=== PATIENT | female | born 1970 | race Two or more races ===

== ENCOUNTER → 2018-02-24 | Outpatient (CLI) | payer OTHER | END | disposition home or self-care (01) | LOC: MAMO-SONO 11:56 | DX: Z12.31 Encounter for screening mammogram for malignant neoplasm of breast (principal); Z87.898 Personal history of other specified conditions; N60.11 Diffuse cystic mastopathy of right breast; N60.12 Diffuse cystic mastopathy of left breast ==

== ENCOUNTER 2020-12-04 08:00 | Outpatient (CLI) | payer OTHER | END 2020-12-04 08:30 | disposition home or self-care (01) | LOC: PPH VACUNA 08:00 | DX: Z23 Encounter for immunization (principal) ==

== ENCOUNTER 2020-12-04 13:28 | Outpatient (CLI) | payer OTHER | END 2020-12-04 13:35 | disposition home or self-care (01) | LOC: MAMO-SONO 13:28 | PROVIDERS: ATTEND General Practice | DX: N60.11 Diffuse cystic mastopathy of right breast (principal); N60.12 Diffuse cystic mastopathy of left breast; Z12.31 Encounter for screening mammogram for malignant neoplasm of breast; M25.561 Pain in right knee; M25.562 Pain in left knee ==

== ENCOUNTER 2020-12-25 08:00 | Outpatient (CLI) | payer OTHER | END 2020-12-25 08:30 | disposition home or self-care (01) | LOC: PPH VACUNA 08:00 | PROVIDERS: ATTEND Emergency Medicine Pediatric Emergency Medicine | DX: Z23 Encounter for immunization (principal) ==

== ENCOUNTER 2022-02-21 20:04 | Emergency (ER) | payer OTHER ==
[~2022-02-21] VITALS: Ht 160 cm; Wt 75.3 kg
== END 2022-02-22 01:20 | disposition home or self-care (01) ==
LOC: ER 20:04
DX: S61.411A Laceration without foreign body of right hand, initial encounter (principal); W25.XXXA Contact with sharp glass, initial encounter; Y93.9 Activity, unspecified; Y92.9 Unspecified place or not applicable; Y99.9 Unspecified external cause status

== ENCOUNTER 2023-10-08 08:45 | Outpatient (CLI) | payer OTHER | END 2023-10-08 08:49 | disposition home or self-care (01) | LOC: MAMO-SONO 08:45 | DX: N60.11 Diffuse cystic mastopathy of right breast (principal); N60.12 Diffuse cystic mastopathy of left breast; Z12.31 Encounter for screening mammogram for malignant neoplasm of breast ==